=== PATIENT | male | born 2005 | race Hispanic/Latino ===

== ENCOUNTER 2025-03-12 18:31 | Emergency (ER) | payer OTHER ==
[~2025-03-12 18:31] MED LIST: Iopamidol 370 76% 100 ML VIAL ONE
[2025-03-12 19:31] LABS: Glucose, Urine (Dipstick) Normal (Negative); Leukocyte Negative (Negative); Protein, Urine (Dipstick) 30 mg/dl (Neg-Trace); Specific Gravity, Urine 1.030 (1.005-1.030)
[2025-03-12] MEDS ORDERED: Ketorolac Tromethamine 30 MG (1 mL) VIAL ONE (19:34)
[2025-03-12 19:40] LABS: CAUTI Indications for Culture Pelvic or flank pain; Mucous/LPF Rare LPF (<2+); RBC/HPF None Seen HPF (0-3); WBC/HPF 0-3 HPF (0-3)
[2025-03-12 19:42] LABS: Urine Culture Reflex No No
[2025-03-12 19:45] LABS: #Basophils 0.03 10x3/uL (0.0-0.2); #Eosinophils 0.12 10x3/uL (0.0-0.5); #Monocytes 0.54 10x3/uL (0.0-1.1); #Neutrophils 5.00 10x3/uL (1.5-8.4); %Basophils 0.4 % (0.0-2.0); %Eosinophils 1.5 % (0.0-6.0); %Lymphocytes 29.3 % (18.0-47.0); %Monocytes 6.7 % (0.0-10.0); %Neutrophils 61.9 % (40.0-75.0); Hematocrit 43.4 % (38.8-50.0); Hemoglobin 15.3 g/dL (13.5-17.5); Mean Corpuscular Hemoglobin 31.5 pg (27.0-33.0); Mean Corpuscular Volume 89.3 fL (81.2-95.1); Platelet Count 291 10x3/uL (150-450); Red Blood Cell (RBC) Count 4.86 10x6/uL (4.32-5.72); White Blood Cell (WBC) Count 8.08 10x3/uL (3.5-10.5)
[2025-03-12 20:26] LABS: ALT (SGPT) 74 U/L (Less than 45); AST (SGOT) 39 U/L (11-34); Albumin 4.1 g/dL (3.1-4.5); Alkaline Phosphatase 88 U/L (40-110); Anion Gap 12 mmol/L (10-20); BUN (Urea Nitrogen) 11 mg/dL (8.9-20.6); Bilirubin, Total 0.4 mg/dL (0.3-1.2); Calc. Creatinine Clearance 0 mL/min (70-130); Calcium 9.4 mg/dL (7.8-10.44); Carbon Dioxide 24 mmol/L (22-29); Chloride 105 mmol/L (98-107); Globulin 4.0 g/dL (2.4-3.5); Glucose 155 mg/dL (70-105); Potassium 3.9 mmol/L (3.5-5.1); Sodium 137 mmol/L (136-145)
== END 2025-03-12 22:03 | disposition home or self-care (01) ==
LOC: CSHERS 18:31
DX: M51.360 Other intervertebral disc degeneration, lumbar region with discogenic back pain only (principal); I10 Essential (primary) hypertension; R94.5 Abnormal results of liver function studies; R31.9 Hematuria, unspecified
CPT/HCPCS: 74177; 80053; 81001; 83690; 85025; 85379; 96374; J1885; Q9967